=== PATIENT | male | born 1990 | race Caucasian/White ===

== ENCOUNTER 2018-10-17 18:54 | Emergency (ER) | payer BC ==
[2018-10-17 19:43] VITALS: BP 138/81
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
[2018-10-17] MEDS ORDERED: predniSONE TAB* 20 MG PO ONE (20:19)
[2018-10-17] MEDS ORDERED: Clindamycin CAP* 150 MG PO ONE (20:22)
[2018-10-18 11:16] LABS: ABS Basophils 0 10^3/ul (0-0.2); ABS Eosinophils 0.3 10^3/ul (0-0.6); ABS Lymphocytes 2.7 10^3/ul (1.0-4.8); ABS Monocytes 0.8 10^3/ul (0-0.8); ABS Neutrophils 9.7 10^3/ul (1.5-7.7); ABS Nucleated RBC 0 10^3/ul; Eosinophil % 2.5 %; Hematocrit 42 % (42-52); Hemoglobin 14.5 g/dl (14.0-18.0); Lymphocyte % 19.9 %; Mean Corpuscular HGB Conc 35 g/dl (31-36); Mean Corpuscular Hemoglobin 31 pg (27-31); Mean Corpuscular Volume 89 fL (80-94); Mean Platelet Volume 7.7 fL (7.4-10.4); Nucleated Red Blood Cells % 0.1; Platelet Count 298 10^3/ul (150-450); Red Blood Count 4.71 10^6/ul (4.00-5.40); Red Cell Distribution Width 12 % (10.5-15); White Blood Count 13.5 10^3/ul (3.5-10.8)
[2018-10-19 16:35] LABS: EBV Capsid Ag IgG Ab Positive (Negative); EBV Capsid Ag IgM Ab Negative (Negative); Epstein-Barr Nuclear Antigen Positive (Negative)
== END 2018-10-17 20:40 | disposition home or self-care (01) ==
LOC: UCCORT 18:54
DX: K12.2 Cellulitis and abscess of mouth (principal); Z88.0 Allergy status to penicillin
CPT/HCPCS: 36415; 85025; 86308; 86664; 86665; 87070; 87651; 99212; A9270-GY; G0463; J7512

== ENCOUNTER 2018-12-13 09:24 | Emergency (ER) | payer BC ==
[2018-12-13 10:12] VITALS: BP 143/70
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
[2018-12-14 14:11] LABS: Neisseria gonorrhoeae (GC) RNA Negative (Negative)
== END 2018-12-13 11:22 | disposition home or self-care (01) ==
LOC: UCCORT 09:24
DX: N34.2 Other urethritis (principal); Z88.0 Allergy status to penicillin
CPT/HCPCS: 81003; 87086; 87491; 87591; 99212; G0463